=== PATIENT | female | born 1965 | race Caucasian/White ===

== ENCOUNTER 2019-08-09 20:25 | Emergency (ER) | payer OTHER ==
[2019-08-09 20:32] VITALS: BP 131/78; PULSE 68; TEMP 97.8; BMI 34.4
--- NOTE | 2019-08-09 21:42 | PDOC ---
History of Present Illness - General Chief Complaint: Back Pain Stated Complaint: BACK PAIN Time Seen by Provider: 08/09/19 21:13 History Source: Patient Exam Limitations: No Limitations - History of Present Illness Initial Comments: 08/09/19 22:22 Chief complaint: Back pain Patient is a 53-year-old female with no significant medical history is putting on her pants and felt her back give out. Patient has no numbness, incontinence or saddle anesthesia. Patient took Tylenol and 400 of ibuprofen and has a little improvement but is still in significant discomfort. GENERAL/CONSTITUTIONAL: No fever, weakness. dizziness HEAD, EYES, EARS, NOSE AND THROAT: No change in vision. No ear pain or discharge. No sore throat. CARDIOVASCULAR: No chest pain RESPIRATORY: No shortness of breath or cough GASTROINTESTINAL: No pain, nausea, vomiting, diarrhea or constipation GENITOURINARY: No dysuria MUSCULOSKELETAL: No neck or back pain SKIN: No rash NEUROLOGIC: No headache, vertigo, loss of consciousness, or loss of sensation. GENERAL: The patient is awake, alert, and fully oriented, in no acute distress. HEAD: Normal with no signs of trauma. EYES: Pupils equal, round and reactive to light, sclera anicteric, conjunctiva clear. ENT: pharynx: no erythema, no exudate, uvula midline NECK: supple CHEST: clear, nontender, rr ABD: soft, nontender BACK: + Left SI tenderness, no signs of injury EXTREMITIES: Normal range of motion, no edema. NEUROLOGICAL: Normal speech, normal gait. SKIN: Warm, Dry Past History - Past Medical History Allergies/Adverse Reactions: Allergies Allergy/AdvReac Type Severity Reaction Status Date / Time No Known Allergies Allergy Verified 08/09/19 20:32 Home Medications: Ambulatory Orders Oxycodone HCl/Acetaminophen [Percocet 5-325 mg Tablet] 1 tab PO Q4H PRN #20 tablet MDD 6 08/09/19 COPD: No - Immunization History Immunization Up to Date: Yes - Psycho Social/Smoking Cessation Hx Smoking History: Never smoked Hx Alcohol Use: No Drug/Substance Use Hx: No *Physical Exam - Vital Signs Last Vital Signs Temp Pulse Resp BP Pulse Ox 97.8 F 68 18 131/78 100 08/09/19 20:29 08/09/19 20:29 08/09/19 20:29 08/09/19 20:29 08/09/19 20:29 Medical Decision Making - Medical Decision Making 08/09/19 22:24 53-year-old female with no significant medical problems who injured her back up trying to put on pants tonight. Patient has no neurological symptoms, patient is ambulatory. Patient does not require imaging. Patient will get Toradol and Percocet as patient is in significant pain and be reassessed. Patient feeling better, comfortable to go home Discussed issues, findings, results, applicable medications and treatments and follow-up. All these were understood and all questions were answered Discharge - Discharge Information Problems reviewed: Yes Clinical Impression/Diagnosis: Back injury Qualifiers: Encounter type: initial encounter Qualified Code(s): S39.92XA - Unspecified injury of lower back, initial encounter Condition: Stable Disposition: HOME - Admission No - Additional Discharge Information Prescriptions: Oxycodone HCl/Acetaminophen [Percocet 5-325 mg Tablet] 1 tab PO Q4H PRN #20 tablet MDD 6 PRN Reason: Back Pain - Follow up/Referral Referrals: ON STAFF,NOT [Primary Care Provider] - - Patient Discharge Instructions Patient Printed Discharge Instructions: Low Back Pain Additional Instructions: No heavy lifting or bending Apply ice to the area 20 minutes every 2 hours for the next 2 days Continue taking Motrin 600 mg every 6 hours for pain. If still in pain he can also take Percocet one to 2 tablets every 4 hours. Return to the nearest ER if numbness, weakness, severe pain, problems with urinating or having bowel movements. Call orthopedist today for an appointment for further evaluation - Post Discharge Activity
[2019-08-09] MEDS ORDERED: KETOROLAC TROMETHAMINE 30 MG/1 ML VIAL IM ONE (21:43)
[2019-08-09] MEDS ORDERED: KETOROLAC TROMETHAMINE 30 MG/1 ML VIAL ONE (21:50)
== END 2019-08-09 22:42 | disposition home or self-care (01) ==
LOC: JERFT 20:25
PROC: 3E0233Z Introduction of Anti-inflammatory into Muscle, Percutaneous Approach (ICD-10-PCS; principal; 2019-08-09)
DX: S39.82XA Other specified injuries of lower back, initial encounter (principal); X50.1XXA Overexertion from prolonged static or awkward postures, initial encounter; Y93.89 Activity, other specified; Y92.018 Other place in single-family (private) house as the place of occurrence of the external cause; Y99.8 Other external cause status
CPT/HCPCS: 99284-25

== ENCOUNTER 2023-10-04 13:59 | Emergency (ER) | payer OTHER ==
[2023-10-04 14:07] VITALS: BP 111/74; PULSE 78; RESP 18; TEMP 98; BMI 35.0
[2023-10-04] MEDS ORDERED: METHOCARBAMOL 500 MG TABLET ONE (15:26)
[2023-10-04] MEDS ORDERED: KETOROLAC TROMETHAMINE 30 MG/1 ML VIAL ONE (15:27)
[2023-10-04] MEDS ORDERED: ACETAMINOPHEN 500 MG TABLET (FP) ONE (15:27)
[2023-10-04] MEDS: KETOROLAC TROMETHAMINE 30 MG/1 ML VIAL IM ONE (15:32)
[2023-10-04] MEDS: METHOCARBAMOL 500 MG TABLET PO ONE (15:33)
[2023-10-04] MEDS: ACETAMINOPHEN 500 MG TABLET (FP) PO ONE (15:33)
== END 2023-10-04 15:48 | disposition home or self-care (01) ==
LOC: JERFT 13:59
PROC: 3E023GC Introduction of Other Therapeutic Substance into Muscle, Percutaneous Approach (ICD-10-PCS; principal; 2023-10-04)
DX: M54.41 Lumbago with sciatica, right side (principal); G89.29 Other chronic pain; M79.10 Myalgia, unspecified site
CPT/HCPCS: 99284-25